=== PATIENT | male | born 1985 | race Caucasian/White ===

== ENCOUNTER 2023-07-30 06:59 | Emergency (ER) | payer BC ==
[~2023-07-30] VITALS: Ht 172.7 cm; Wt 79.0 kg
[2023-07-30 07:08] VITALS: O2SAT 97
[2023-07-30] MEDS: PREDNISONE 20MG TABLET PO ONE (07:35)
[2023-07-30] MEDS: DIAZEPAM 5 MG/ML 2ML SYR IM ONE (07:36)
[2023-07-30] MEDS ORDERED: DIAZ-570 MT (08:00)
[2023-07-30] MEDS ORDERED: P20 PO (08:00)
[2023-07-30 08:22] VITALS: BP 131/86; PULSE 70; RESP 18; TEMP 97.5
== END 2023-07-30 08:36 | disposition home or self-care (01) ==
LOC: ER 06:59
DX: S13.4XXA Sprain of ligaments of cervical spine, initial encounter (principal); M62.830 Muscle spasm of back; X58.XXXA Exposure to other specified factors, initial encounter; Y93.89 Activity, other specified; Y92.89 Other specified places as the place of occurrence of the external cause; Y99.8 Other external cause status
CPT/HCPCS: 99283; 96372; J7512; J3360